=== PATIENT | female | born 1985 | race African-American/Black ===

== ENCOUNTER 2017-11-03 06:09 | Inpatient (IN) | payer OTHER ==
[2017-11-03] MEDS ORDERED: LIDOCAINE 1% MDV 20ML VIAL SQ (06:30)
[2017-11-03] MEDS: LR 1,000 ML IV ×5 (06:56→23:32)
[2017-11-03] MEDS ORDERED: MIDAZOLAM INJ 2 MG/2 ML VIAL (J2250) As Ordered (07:04)
[2017-11-03] MEDS ORDERED: fentaNYL 100 MCG/2 ML INJECTION (J3010) As Ordered ×2 (07:04→08:33)
[2017-11-03] MEDS: BUPIVACAINE LIPOSOME/PF 1.3% 20 ML VIAL (13.3MG/ML)(EXPAREL) As Ordered (07:09)
[2017-11-03 07:16] LABS: MEAN CORPUSCULAR HEMOGLOBIN 30.7 pg (27.0-33.0); MEAN CORPUSCULAR VOLUME 90.1 fl (80.0-96.0); PLATELET COUNT, AUTOMATED 212 10^3/uL (150-450); RED CELL DISTRIBUTION WIDTH 12.8 % (11.5-14.5); WHITE BLOOD COUNT 4.7 10^3/uL (4.0-10.0)
[2017-11-03] MEDS: BUPIVACAINE HCL 0.25% 30 ML VIAL As Ordered (07:20)
[2017-11-03] MEDS: RIZATRIPTAN BENZOATE 10 MG TAB PO (07:23)
[2017-11-03 07:29] LABS: CONTROL LINE HCG INT CTR LINE PRESENT
[2017-11-03] MEDS: CEFAZOLIN SOD 1 GM in APPROPRIATE DILUENT 1 EA IV (07:59)
[2017-11-03] MEDS ORDERED: dexameTHASONE 4 MG/ML 1ML VIAL (J1100) As Ordered ×2 (08:00)
[2017-11-03] MEDS ORDERED: KETOROLAC 60 MG/2 ML VIAL (J1885) As Ordered (08:00)
[2017-11-03] MEDS ORDERED: ONDANSETRON 4MG/2ML VIAL (J2405) As Ordered ×2 (08:00→10:05)
[2017-11-03] MEDS: METHYLENE BLUE 0.5% (5MG/ML) 10 ML AMP (PROVAYBLUE)(Q9968 PER 1MG) As Ordered (09:17)
[2017-11-03] MEDS ORDERED: NEOSTIGMINE 10 MG/10 ML VIAL (J2710) As Ordered (09:23)
[2017-11-03] MEDS ORDERED: GLYCOPYRROLATE INJ 0.2 MG/ML 2 ML VIAL As Ordered (09:23)
[2017-11-03] MEDS ORDERED: HYDROmorphone HCL 1 MG/ML SYRINGE (J1170) As Ordered (10:08)
[2017-11-03] MEDS: ONDANSETRON 4MG/2ML VIAL (J2405) IV (10:10)
[2017-11-03] MEDS: HYDROmorphone HCL 1 MG/ML SYRINGE (J1170) IV ×4 (10:15→10:41)
[2017-11-03] MEDS ORDERED: NORCO, ANEXSIA 5/325MG TABLET (HYDROcodone/ACETAMINOPHEN) As Ordered (10:35)
[2017-11-03] MEDS: NORCO, ANEXSIA 5/325MG TABLET (HYDROcodone/ACETAMINOPHEN) PO (10:41)
[2017-11-03] MEDS ORDERED: fentaNYL 100 MCG/2 ML INJECTION (J3010) IV (10:45)
[2017-11-03] MEDS ORDERED: ONDANSETRON 4MG/2ML VIAL (J2405) IV (11:15)
[2017-11-03] MEDS ORDERED: PERCOCET 5MG/325MG TAB PO (11:15)
[2017-11-03] MEDS ORDERED: PROMETHAZINE INJ 25 MG/ML VIAL (J2550) IV (11:15)
[2017-11-03] MEDS: KETOROLAC 30 MG/ML VIAL (J1885) IV ×2 (15:02→20:33)
[2017-11-03] MEDS: DOCUSATE SODIUM 100 MG CAP PO ×2 (15:02→20:32)
[2017-11-03] MEDS: PERCOCET 5MG/325MG TAB PO (23:33)
[2017-11-04] MEDS: KETOROLAC 30 MG/ML VIAL (J1885) IV ×2 (01:57→08:12)
[2017-11-04] MEDS: PERCOCET 5MG/325MG TAB PO ×2 (04:00→12:22)
[2017-11-04 07:03] LABS: BASO % 0.1 % (0.0-1.0); EOS # 0.1 10^3/uL (0.0-0.50); EOS % 0.4 % (0.0-3.0); IMMATURE GRANULOCYTE # 0.1 10^3/uL (0-0); IMMATURE GRANULOCYTE % 0.5 % (0-0); LYMPH # 2.3 10^3/uL (1.5-4.5); LYMPH % 18.7 % (24.0-44.0); MEAN CORPUSCULAR HEMOGLOBIN 30.8 pg (27.0-33.0); MEAN CORPUSCULAR HGB CONC 33.5 g/dl (32.0-36.5); MEAN CORPUSCULAR VOLUME 91.8 fl (80.0-96.0); MONO # 0.9 10^3/uL (0.0-0.8); MONO % 7.2 % (0.0-5.0); NEUTROPHILS % 73.1 % (36.0-66.0); PLATELET COUNT, AUTOMATED 190 10^3/uL (150-450); RED CELL DISTRIBUTION WIDTH 12.8 % (11.5-14.5); WHITE BLOOD COUNT 12.3 10^3/uL (4.0-10.0)
[2017-11-04] MEDS: DOCUSATE SODIUM 100 MG CAP PO (08:12)
[2017-11-04] MEDS ORDERED: IBUPROFEN 800 MG TAB PO (16:00)
== END 2017-11-04 12:25 | disposition home or self-care (01) | DRG 743 ==
LOC: M OR 06:09 → M PED 11:31
PROC: 0UT94ZZ Resection of Uterus, Percutaneous Endoscopic Approach (ICD-10-PCS; principal; 2017-11-03 07:30)
PROC: 0UTC4ZZ Resection of Cervix, Percutaneous Endoscopic Approach (ICD-10-PCS; 2017-11-03 07:30)
PROC: 0UT74ZZ Resection of Bilateral Fallopian Tubes, Percutaneous Endoscopic Approach (ICD-10-PCS; 2017-11-03 07:30)
PROC: 0TJB8ZZ Inspection of Bladder, Via Natural or Artificial Opening Endoscopic (ICD-10-PCS; 2017-11-03 07:30)
DX: N93.9 Abnormal uterine and vaginal bleeding, unspecified (principal); Z88.1 Allergy status to other antibiotic agents; Z79.899 Other long term (current) drug therapy